=== PATIENT | female | born 1945 | race Caucasian/White ===

== ENCOUNTER 2017-01-07 22:25 | Observation (INO) ==
--- NOTE | 2017-01-07 23:14 | Emergency Department Note ---
Disposition Clinical Impression: Hypertensive emergency Chest pain Qualifiers: Chest pain type: unspecified Qualified Code(s): R07.9 - Chest pain, unspecified Disposition: Admitted As Inpatient Condition: Undetermined Time of Disposition: 01:09 General Adult HPI - General Chief complaint: ED Upper Respiratory Infection Stated complaint: sore throat Time Seen by Provider: 01/07/17 22:42 Source: patient Mode of arrival: ambulatory Limitations: no limitations Nursing Notes Reviewed: Yes Vital Signs Reviewed: Yes - History of Present Illness HPI Narrative: 71-year-old female with history of CAD and CABG arrives to [facility] emergency department with multiple complaints. The patient states she initially arrived to the emergency department complaining of left ear pain as well as sore throat. The patient states that she also feels as though her tongue is swollen. The patient states in the room upon questioning that she is complaining of left-sided chest pain with radiation into her left upper extremity. The patient states that this "kind of feels like my heart attack". The patient recently was visiting the emergency department for similar complaints. With a workup that revealed otitis externa, otitis media and vascular congestion on x-ray. The patient was discharged home on Augmentin by mouth as well as Ciprodex drops for the right otitis externa. The patient was instructed to follow-up with ENT as well as her PCP which she did not. The patient states that her pain started today, so she decided to come to the emergency department to get "checked out". The patient states that her chest discomfort and left upper extremity radiation of the pain also started this evening. The patient denies any other complaints at this time including fever, chills, abdominal pain, nausea, vomiting, diarrhea. The patient is difficult of hearing and unable to answer certain questions to include when she completed her antibiotics and if she took them to completion. She states while she was here in the emergency department that she took her antibiotics with her last dose yesterday. The patient was only prescribed 10 days worth of antibiotics so this does not make sense and she is unable to elaborate on when and how she finished her antibiotics. Onset (ago): day(s) (1) Location: mouth, chest Radiation: extremity (Left upper extremity) Pain Severity: moderate, similar to prior episodes Pain Scale: 8 Quality: aching Consistency: intermittent Improves with: nothing Worsens with: nothing Associated symptoms: Reports: denies other symptoms Treatments Prior to Arrival: none - Related Data Home Medications Medication Instructions Recorded Confirmed Metoprolol [Lopressor] 25 mg PO BID 01/08/17 01/08/17 Oxycodone HCl/Acetaminophen 1 tab PO Q6H PRN 01/08/17 01/08/17 [Percocet 10-325 mg Tablet] Previous Rx's Medication Instructions Recorded Omeprazole [PriLOSEC] 20 mg PO DAILY capsule 02/20/15 Gabapentin [Neurontin] 100 mg PO TID #15 capsule 02/29/16 Albuterol Sulfate [Albuterol 0 puff IH Q4HR #1 hfa.aer.ad 12/15/16 Inhaler] Allergies Allergy/AdvReac Type Severity Reaction Status Date / Time codeine Allergy Rash Verified 01/07/17 22:39 All systems ED: reviewed and negative except as stated. Constitutional: Denies: fever, chills, weakness, weight change Eyes: Denies: eye pain, eye discharge, vision change ENT ED: Reports: ear pain, throat pain. Denies: dental pain, hearing loss, epistaxis, congestion, dysphagia Cardiovascular: Reports: chest pain. Denies: palpitations, dyspnea on exertion , edema, syncope Respiratory: Denies: cough, dyspnea, wheezes, hemoptysis, stridor Gastrointestinal: Denies: abdominal pain, nausea, vomiting, diarrhea, constipation, hematemesis, melena, hematochezia Musculoskeletal: Denies: back pain, neck pain, arthralgia, myalgia Integumentary: Denies: rash, abrasion, lesions Neurological: Denies: headache, weakness, numbness, paresthesias, confusion, abnormal gait, vertigo Past Medical History - Past Medical History Attestation: Yes The following information was validated with the patient. Source: patient Medical history: Reports: coronary artery disease, diabetes, fibromyalgia, hypertension, myocardial infarction Surgical history: Reports: coronary bypass (CABG) Psychiatric history: Reports: no psych history [employer]OR [employer] history: Reports: no [employer] history - Social History Smoking Status: Never smoker Smokeless Tobacco Status: No Alcohol use: Reports: none Drug use: Reports: none Physical Exam - General Limitations: no limitations General appearance: alert, in no apparent distress - Head Head exam: atraumatic, normocephalic, normal inspection - Eye Eye exam: Present: normal appearance, PERRL, EOMI - ENT ENT exam: normal exam, normal oropharynx, mucous membranes moist, TM's normal bilaterally - Neck Neck exam: Present: normal inspection, full ROM, trachea midline - Chest Chest inspection: Present: normal inspection, symmetric chest wall rise - Respiratory Respiratory exam: Present: normal lung sounds bilaterally - Cardiovascular Cardiovascular exam: Present: regular rate, normal rhythm, normal heart sounds - Abdominal Exam Abdominal exam: Present: soft, Non-Tender. Absent: tenderness, distention, guarding, rebound, rigidity - Extremities Exam Extremities exam: Present: normal inspection, full ROM. Absent: tenderness, pedal edema - Neurological Exam Neurological exam: Present: alert, oriented X3 - Skin Skin exam: Present: warm, dry, intact, normal color Course - Reevaluation(s) Reevaluation #1: Patient was noted to have a blood pressure of 210 over 140s. The patient was administered 3 nitroglycerin sublingual for her chest pain as well as her blood pressure. Blood pressure dropped very quickly to the 160s systolic. The patient is resting comfortably in bed at this time without any chest pain. Waiting labs at this time. Chest x-ray demonstrates no acute findings. Given the patient's previous medical history and symptoms, we will attempt to admit the patient to the hospital. Time: 00:37 Reevaluation #2: Patient is currently chest pain-free at this time. We had an extensive discussion about admission versus discharge given her symptoms and nonspecific ST changes in the lateral leads. I expressed my concern for her chest pain and these changes as well as the fact that her blood pressure and chest pain have subsided after nitroglycerin. It was agreed that the patient would be admitted for observation and trending troponins for this complaint. She agrees to this plan and is willing to be admitted. Time: 00:42 Vital Signs Temperature 98.3 F 01/07/17 22:34 Pulse Rate 70 01/07/17 22:34 Respiratory Rate 20 01/07/17 22:34 Blood Pressure 210/101 01/07/17 22:34 O2 Sat by Pulse Oximetry 95 01/07/17 22:34 Temperature 98.1 F 01/08/17 14:49 Pulse Rate 68 01/08/17 14:49 Respiratory Rate 16 01/08/17 14:49 Blood Pressure 176/85 01/08/17 14:49 O2 Sat by Pulse Oximetry 93 01/08/17 14:49 Oxygen Delivery Oxygen Delivery Room Air Medical Decision Making - MDM Narrative Medical decision making narrative: Workup here in the emergency department demonstrates nonspecific ST changes on EKG from previous. The patient also was hypertensive and was experiencing what is likely hypertensive encephalopathy combined with this chest pain associated with the hypertension. After receiving 3 glycerin, the patient's systolic dropped into the 160s. The patient states she is feeling much better at this time and not complaining of any chest pain. Given the patient's history of CAD , we will admit the patient to the hospital for further workup and care. Patient agrees to this plan. We will speak to the hospitalist. Accepted by Dr. Denton. - Medical Records Medical records reviewed: Yes I reviewed the patient's medical records. - Lab Data Lab results reviewed: Yes I reviewed the patient's lab results. Result diagrams: 01/08/17 00:07 01/08/17 00:07 Lab Results 01/08/17 01/08/17 01/08/17 Range/Units 00:07 00:07 00:07 WBC 9.3 (4.3-11.1) K/mcL RBC 4.79 (3.82-4.97) M/mcL Hgb 13.7 (11.5-15.4) g/dL Hct 41.3 (35.3-44.9) % MCV 86.2 (83.0-100.0) fL MCH 28.6 (28.0-33.3) pg MCHC 33.2 (31.6-35.5) g/dL RDW 13.3 (11.5-14.5) % Plt Count 243 (140-400) K/mcL MPV 10.7 (9.4-12.4) fL Immature Gran % 0.3 (0-4) % Seg Neutrophils % 62.1 % Lymphocytes % 24.3 % Monocytes % 7.6 % Eosinophils % 4.9 % Basophils % 0.8 % Neutrophils # 5.8 (1.6-8.9) K/mcL Lymphocytes # 2.3 (0.6-4.6) K/mcL Monocytes # 0.7 (0.0-1.3) K/mcL Eosinophils # 0.5 (0.0-0.6) K/mcL Basophils # 0.1 (0.0-0.2) K/mcL Sodium 140 (136-145) mEq/L Potassium 4.0 (3.5-4.5) mEq/L Chloride 107 (98-109) mEq/L Carbon Dioxide 24 (19-29) mEq/L BUN 15 (7-20) mg/dL Creatinine 0.84 (0.57-1.11) mg/dL Est GFR ( Amer) > 60 (> 60) Est GFR (Non-Af Amer) > 60 (> 60) BUN/Creatinine Ratio 18 (6-26) Glucose 178 H (70-99) mg/dL Calculated Osmolality 295 (280-300) Calcium 9.5 (8.6-10.8) mg/dL Troponin I 0.00 (0-0.03) ng/mL - Radiology Data Radiology results reviewed: Yes I reviewed the patient's radiology results. Chest X-Ray 01/07/17 22:54 IMPRESSION: No focal airspace disease. Cardiomegaly D/ / Shmuel Bowden MD / Shmuel Bowden MD Interpreting Provider: Shmuel Bowden MD - EKG Data EKG #1 EKG attestation: Yes I reviewed and interpreted this EKG. EKG results narrative: Heart rate 65 bpm. VT interval 159 ms. QTc 420 ms. Normal axis. Normal sinus rhythm. No ST elevation or ST depression noted. Nonspecific changes noted in lateral leads primarily V4, V5, V6. This is different from EKG from . Attestation Statement - Attestation Attestation: I personally interviewed and examined this patient and my medical decision- making was reviewed with the ED Resident Physician, Dr. Eller I agree with the documented findings, disposition and treatment plan as described except to the extent set forth below. Patient is a 71-year-old white female with a history of known coronary disease and prior [place] who presents to the emergency department today and while in triage was complaining of a sore throat and some pain up into her neck and ear. Upon a more detailed history patient told us that she is having left anterolateral chest pain that radiates up into her axilla and left shoulder and arm, as well as her left neck towards her ear. Patient initially stated that this felt a lot like her prior chest pain related to her heart attack. Patient's blood pressure is significantly elevated on arrival despite taking her metoprolol as directed at home. Patient states that at home while she was experiencing this pain she did take 1 nitroglycerin prior to arrival to the ED. Patient denies any shortness of breath associated with this pain, no actual upper respiratory symptoms such as congestion postnasal drip. No cough. When asking more details about the throat it seemed to be more neck pain related to the chest pain than an actual painful swallowing issue. I agree with patient's physical exam findings as documented. Patient was placed on director of corporate strategy and continuous pulse ox IV saline was established and she was administered aspirin and nitroglycerin trial. Labs have been drawn and sent in portal chest x-ray is within normal limits. EKG did so show some subtle T-wave changes compared to prior EKG but no ST elevation or depression. Awaiting laboratory values. Following nitroglycerin administration patient with much improvement blood pressure at this time. Pain-free following nitroglycerin administration. Blood pressure much improved. Patient's troponin is negative. We will admit the patient for further evaluation of chest pain. Discussed with hospitalist who agrees to admit the patient for further evaluation and management.
[2017-01-07] MEDS ORDERED: Aspirin 325 MG TABLET PO ONE (23:31)
[2017-01-07] MEDS: Nitroglycerin 0.4 MG TAB.SUBL SL PRN (23:39)
[2017-01-08] MEDS: Nitroglycerin 0.4 MG TAB.SUBL SL PRN ×2 (00:02→00:09)
[2017-01-08 00:25] LABS: Basophils # 0.1 K/mcL (0.0-0.2); Basophils % 0.8 %; Eosinophils # 0.5 K/mcL (0.0-0.6); Eosinophils % 4.9 %; Hematocrit 41.3 % (35.3-44.9); Hemoglobin 13.7 g/dL (11.5-15.4); Immature Granulocytes % 0.3 % (0-4); Lymphocytes # 2.3 K/mcL (0.6-4.6); Lymphocytes % 24.3 %; Mean Corpuscular HGB Conc 33.2 g/dL (31.6-35.5); Mean Corpuscular Hemoglobin 28.6 pg (28.0-33.3); Mean Corpuscular Volume 86.2 fL (83.0-100.0); Mean Platelet Volume 10.7 fL (9.4-12.4); Monocytes # 0.7 K/mcL (0.0-1.3); Monocytes % 7.6 %; Neutrophils # 5.8 K/mcL (1.6-8.9); Platelet Count 243 K/mcL (140-400); Red Blood Count 4.79 M/mcL (3.82-4.97); Red Cell Distribution Width 13.3 % (11.5-14.5); Segmented Neutrophils % 62.1 %
[2017-01-08 00:40] LABS: BUN/Creatinine Ratio 18 (6-26); Blood Urea Nitrogen 15 mg/dL (7-20); Calcium 9.5 mg/dL (8.6-10.8); Carbon Dioxide 24 mEq/L (19-29); Chloride 107 mEq/L (98-109); Glucose 178 mg/dL (70-99); Osmolality,Calculated 295 (280-300); Sodium 140 mEq/L (136-145); eGFR For African Americans > 60 (> 60); eGFR For Non-African Americans > 60 (> 60)
[2017-01-08] MEDS ORDERED: Naloxone 0.4 MG/ML INJ IVP PRN (03:11)
[2017-01-08] MEDS ORDERED: *HR* Morphine 2 MG/ML SYRINGE IVP PRN (03:13)
[2017-01-08] MEDS ORDERED: *HR* Dextrose 50 % in Water (Syg) 50 ML SYRINGE IVP PRN (03:15)
[2017-01-08] MEDS ORDERED: D5% in Water 1,000 ML IVC PRN (03:15)
[2017-01-08] MEDS ORDERED: Dextrose Gel 15 GM PO PRN ×2 (03:15)
--- NOTE | 2017-01-08 03:30 | Internal Med History&Physical ---
Date of Encounter: 01/08/17 Time of Encounter: 03:10 Assessment and Plan (1) Chest pain Current visit: Yes Status: Acute CP could be related to hypertensive urgency versus ACS. Pt has multiple risk factors for CAD. Cardiac monitoring; trend troponins - if negative, needs stress test (after the BP is controlled). Qualifiers: Chest pain type: unspecified Qualified Code(s): R07.9 - Chest pain, unspecified (2) Accelerated hypertension Current visit: Yes Status: Acute Suspect it is possibly due to over the counter cough preperations. Pt reports compliance with medications and diet. Resume home medications and start hydralazine IV PRN. (3) CAD (coronary artery disease), [place] coronary artery Current visit: Yes Status: Chronic s/p CABG Qualifiers: [place] vs. transplanted heart: [place] heart Associated angina: angina presence unspecified Qualified Code(s): I25.10 - Atherosclerotic heart disease of [place] coronary artery without angina pectoris (4) Diabetes mellitus Current visit: Yes Status: Chronic Start sliding scale insulin Qualifiers: Diabetes mellitus type: type 2 Diabetes mellitus complication status: without complication Diabetes mellitus shelter insulin use: without shelter use Qualified Code(s): E11.9 - Type 2 diabetes mellitus without complications Internal Medicine - H&P: HPI Chief complaint: Chest pain Admitted From: Emergency Dept Plans for Post Hospital Care: Home History of present illness: Ms. Mcdaniels is a 71 year old female with history of diabetes, hypertension, CAD s/p CABG, Fibromyalgia. He presents to the emergency department with left ear pain as well as sore throat. She has been taking over the counter medications for sore throat. She reports intermittent sharp left-sided chest pain with radiation into her left upper extremity, since yesterday. Pain is unrelated to exertion / inspiration. Denies injury to the chest. She denies shortness of breath. Reports a dry cough. She denies fever or chills. She denies headache, blurry vision, abdominal pain, hematuria, dysuria, change in bowel habits. She was evaluated in the Emergency department no otitis media per ER evaluation. She was noted to be hypertensive with blood pressure of 201/ 91. She was given sublingual nitroglycerin, with improvement of blood pressure. Pt reports long h/o HTN and apparently her BP is generally evelated when she visits PCP. She reports compliance with medications and diet. She is admitted to the hospitalist service for further workup and management. Past Med Surg Social Fam HX - Past Medical History Medical history: coronary artery disease, diabetes, fibromyalgia, hypertension, myocardial infarction Psychiatric history: no psych history - Past Surgical History Surgical History: coronary bypass (CABG) - Social History Smoking Status: Never smoker Smokeless Tobacco Status: No Alcohol use: none Drug use: none - Family History Father Living Status: Hx Family Cardiac Disorders: Yes (anuerysm rupture) Internal Medicine - H&P: Meds Aspirin 325 mg PO QPM tablet 02/17/15 [Rx] Simvastatin [Zocor] 40 mg PO HS tablet 02/17/15 [Rx] Carvedilol [Coreg] 12.5 mg PO BID #60 tablet 02/20/15 [Rx] Omeprazole [PriLOSEC] 20 mg PO DAILY capsule 02/20/15 [Rx] Clopidogrel [Plavix] 75 mg PO DAILY 05/11/15 [History] Hydrocodone/Acetaminophen [[place] 5-325 Tablet] 1 tab PO Q6H PRN 05/11/15 [ History] Lisinopril [Zestril] 15 mg PO DAILY 05/11/15 [History] HYDROcodone/Acet 5/325 mg [[place] 5-325 mg] 1 tab PO Q6H PRN #8 tab 02/01/16 [Rx] Gabapentin [Neurontin] 100 mg PO TID #15 capsule 02/29/16 [Rx] Albuterol Sulfate [Albuterol Inhaler] 0 puff IH Q4HR #1 hfa.aer.ad 12/15/16 [Rx] Amoxicillin/Clavulanate [Augmentin] 875 mg PO BIDWM #20 tablet 12/15/16 [Rx] Allergies codeine Allergy (Verified 01/07/17 22:39) Rash All Systems PM: A 10-system review of systems was performed and is negative for pertinent findings except as documented above in the HPI. - Constitutional Vitals: Temp Pulse Resp BP Pulse Ox 97.6 F 54 18 228/94 95 01/08/17 01:49 01/08/17 01:49 01/08/17 01:49 01/08/17 01:49 01/08/17 01:49 Exam: General: Not in acute distress at the time of my evaluation HEENT: Oral mucosa is moist. No conjunctival palor or scleral icterus Neck: No obvious neck swellings Lungs: Clear to auscultation Cardiac: Regular rate and rhythm. No significant murmurs Abdomen: Soft, non tender. Bowel sounds present Genitourinary: No dominguez catheter Neurological: Alert and oriented. No gross localizing deficits Psych: Not aggressive or agitated Extremities: B/L leg edema Skin: No generalized rash Internal Med - H&P Results - Labs CBC & Chem 7: 01/08/17 00:07 01/08/17 00:07 - EKG Data -: EKG Interpreted by Myself EKG shows normal: sinus rhythm - EKG Data EKG comments: Non specific ST-T changes 01/08/17 03:31 - Impressions ITS Impressions Chest X-Ray 01/07/17 22:54 IMPRESSION: No focal airspace disease. Cardiomegaly D/ / Shmuel Bowden MD / Shmuel Bowden MD Interpreting Provider: Shmuel Bowden MD
[2017-01-08 04:51] LABS: Chol/HDL Ratio 5.4 (0-4.9)
[2017-01-08] MEDS ORDERED: Ipratropium/Albuterol Neb 3 ML IH PRN (06:42)
[2017-01-08] MEDS: Insulin LISPRO 300 UNITS/3 ML VIAL SQ SCH ×2 (08:05→12:15)
[2017-01-08] MEDS ORDERED: *HR* OxyCODONE/APAP 10/325 TABLET PO PRN ×2 (09:36→09:50)
[2017-01-08] MEDS ORDERED: Ondansetron 4 MG/2 ML VIAL IVP PRN (09:40)
[2017-01-08] MEDS ORDERED: *HR* Promethazine 25 MG/ML VIAL IVP PRN (09:40)
[2017-01-08] MEDS: Gabapentin 100 MG CAPSULE PO SCH ×2 (10:06→14:13)
[2017-01-08 14:53] VITALS: BP 176/85
--- NOTE | 2017-01-08 16:10 | Discharge Summary ---
Date of Encounter: 01/08/17 Time of Encounter: 14:30 - Discharge Diagnosis (1) Chest pain Priority: Primary Status: Resolved Comments: Patient with left-sided chest pain that was worsened when she laid on that left side and worsened with palpation and movement. Patient stating that she lifted a heavy block on the day prior to presentation. Consistent with musculoskeletal etiology. Troponins negative 3. Patient stating this chest pain did not feel like her prior MS chest pain. Low suspicion for acute coronary syndrome, regarding risk factor modification, recommend initiating aspirin and statin and daily blood pressure checks at home. (2) Costochondral chest pain Priority: Primary Status: Suspected (3) CAD (coronary artery disease), [place] coronary artery Priority: Secondary Status: Chronic Qualifiers: [place] vs. transplanted heart: [place] heart Associated angina: angina presence unspecified Qualified Code(s): I25.10 - Atherosclerotic heart disease of [place] coronary artery without angina pectoris (4) Hypertension Priority: Secondary Status: Chronic Comments: Patient stating her blood pressure as well as several family members blood pressures have been uncontrolled for many years. Blood pressure was improved at time of discharge, recommend daily blood pressure checks at home, keeping a log, and following up outpatient. (5) Hyperlipidemia Priority: Secondary Status: Chronic Comments: LDL elevated at 129, appropriate to initiate a statin. Qualifiers: Hyperlipidemia type: unspecified Qualified Code(s): E78.5 - Hyperlipidemia , unspecified (6) Diabetes mellitus Priority: Secondary Status: Chronic Comments: Appears relatively well controlled at home. No recent A1c, follow up outpatient. 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 Qualified Code(s): E11.9 - Type 2 diabetes mellitus without complications (7) DVT prophylaxis Priority: Primary Status: Acute Comments: Observation patient (8) History of heart bypass surgery Priority: Secondary Status: Chronic (9) Accelerated hypertension Priority: Primary Status: Resolved - Discharge Medications Prescriptions: Aspirin 81 mg PO DAILY #30 tab.chew Atorvastatin [Lipitor] 10 mg PO HS #30 tablet Blood Pressure Test Kit [Blood Pressure Kit] 1 each MC DAILY #1 kit Home Medications: Omeprazole [PriLOSEC] 20 mg PO DAILY capsule 02/20/15 [Rx] Gabapentin [Neurontin] 100 mg PO TID #15 capsule 02/29/16 [Rx] Albuterol Sulfate [Albuterol Inhaler] 0 puff IH Q4HR #1 hfa.aer.ad 12/15/16 [Rx] Aspirin 81 mg PO DAILY #30 tab.chew 01/08/17 [Rx] Atorvastatin [Lipitor] 10 mg PO HS #30 tablet 01/08/17 [Rx] Blood Pressure Test Kit [Blood Pressure Kit] 1 each MC DAILY #1 kit 01/08/17 [Rx ] Metoprolol [Lopressor] 25 mg PO BID 01/08/17 [History] Oxycodone HCl/Acetaminophen [Percocet 10-325 mg Tablet] 1 tab PO Q6H PRN [History] Allergies/Adverse Reactions: Allergies codeine Allergy (Verified 01/07/17 22:39) Rash Date of admission: 01/08/17 01:15 Primary care physician: Osmel Elliott MD Discharging clinician: Kassy Pro Anticipated date of discharge: 01/08/17 - Patient Status Disposition: Home, Self-Care Condition: Good Functional capacity at discharge: independent ambulation Overall status at discharge: patient is back to baseline - Discharge Instructions Follow Up With: Osmel Elliott MD [Primary Care Provider] - 01/13/17 10:15 am Additional Instructions: Follow-up with primary care provider as scheduled - Diet and Activity Activity: increase activity as tolerated Diet: diabetic diet, low fat, low cholesterol, low salt diet Hospital course: Ms. Mcdaniels is a 71 year old female with past medical history of CAD status post CABG, diabetes, fibromyalgia, hypertension, prior MS, hiatal hernia. Patient presented to the emergency department with initial chief complaint of left ear pain and a sore throat. Patient also endorses intermittent sharp, left -sided chest pain with radiation to her left upper extremity that started on the day prior to presentation. Pain is unrelated to exertion or inspiration. Patient denies shortness of breath. She denied headache, blurred vision, abdominal pain. Upon presentation, patient was hypertensive at 201/91 and she was given sublingual nitroglycerin with improvement in her blood pressure. Patient reporting a long history of hypertension and states her blood pressure is elevated whenever she visits her primary care provider. Workup otherwise negative in the emergency department. Chest x-ray negative. Patient was admitted to the hospitalist service for further evaluation and management. Given that she had nitroglycerin and uncontrolled blood pressure, stress test was not performed. Troponins were trended and were negative 3. On examination , patient's chest pain was worsened when she laid on her left side and worsened with palpation and movement. Patient stating that on the day prior to presentation, she was moving heavy blocks and states that she "overdid it." Workup with low suspicion for acute coronary syndrome, consistent with musculoskeletal etiology. Regarding her risk factor modification given that she has a history of CABG and prior MS, her diabetes appears relatively well controlled. It is unclear whether or not her blood pressure is controlled at home so she was given a prescription for a blood pressure cuff as she states she does not have one at home. She was also started on a baby aspirin and a statin. LDL elevated at 129. Blood pressure was better controlled prior to discharge, recommend daily blood pressure checks at home, keep a log, and follow -up with primary care provider. She was discharged home in stable condition with close outpatient follow-up recommended. ITS Impressions Chest X-Ray 01/07/17 22:54 IMPRESSION: No focal airspace disease. Cardiomegaly D/ / Shmuel Bowden MD / Shmuel Bowden MD Interpreting Provider: Shmuel Bowden MD - Time Spent with Patient Total time spent providing and/or coordinating discharge services: - Constitutional Vitals: Temp Pulse Resp BP Pulse Ox 98.1 F 68 16 176/85 93 01/08/17 14:49 01/08/17 14:49 01/08/17 14:49 01/08/17 14:49 01/08/17 14:49 General appearance: Present: A&O X 3, pleasant, no acute distress, answers questions appropriately - Head Head exam: Present: atraumatic, normocephalic - Eye Eye exam: Present: PERRL, conjuntiva pink, sclera anicteric Pupils: Present: PERRL - Neck Neck exam general surgery: Present: supple, trachea midline. Absent: lymphadenopathy - Respiratory Respiratory exam: Present: chest wall tenderness, CTAB. Absent: accessory muscle use, rales, respiratory distress, rhonchi, wheezes - Cardiovascular Cardiovascular exam: Present: RRR, +S1, +S2. Absent: diastolic murmur, gallop, rubs, systolic murmur - GI/Abdominal GI/Abdominal exam: Present: normal bowel sounds, soft, no peritoneal signs. Absent: distended, tenderness - Extremities Exam Extremities exam: Present: warm, radial pulses palpable and symetrical. Absent : calf tenderness, cyanotic, pedal edema - Neurological Exam Neurological exam: Present: alert, CN II-XII intact, normal gait, oriented X3, no focal deficits, strengths equal and symetr throughout. Absent: pronater drift, facial droop, speech deficit - Skin Skin exam: Present: dry, intact, normal color, warm - VTE Reasons for not Prescribing Prophylaxis: Treatment not Indicated - Low risk for VTE
[2017-01-08] MEDS ORDERED: Insulin LISPRO 300 UNITS/3 ML VIAL SQ SCH (21:00)
--- NOTE | 2017-01-09 11:17 | Electrocardiograph Report ---
[place] [id number] Test Date: 2017-01-07 Pat Name: Heath Mcdaniels Department: 102 Room: 3B Gender: F State Manager: : [id number] Requested By: August Eller Order Number: [id number] Reading MD: Mina Blair MD Measurements Intervals [place] Rate: 65 P: 2 TN: 159 QRS: 48 QRSD: 92 T: 50 QT: 408 QTc: 420 Interpretive Statements SINUS RHYTHM BASELINE ARTIFACT Electronically Signed On 01-09-2017 11:15:48 EDT by Mina Blair MD
== END 2017-01-08 16:31 | disposition home or self-care (01) ==
LOC: 3BNU 22:25 → EMEROO 22:25 → 3BNU 01-08 01:25
PROVIDERS: ADMIT Internal Medicine; ATTEND Nurse Practitioner Family

== ENCOUNTER 2020-07-03 21:54 | Observation (INO) ==
[2020-07-03] MEDS ORDERED: Aspirin 81 MG TAB.CHEW PO STA (22:20)
[2020-07-03] MEDS ORDERED: Nitroglycerin 0.4 MG TAB.SUBL SL PRN (22:20)
[2020-07-03 22:32] LABS: Basophils # 0.1 K/mcL (0.0-0.2); Basophils % 0.9 %; Eosinophils # 0.4 K/mcL (0.0-0.6); Eosinophils % 3.9 %; Hematocrit 42.4 % (35.3-44.9); Hemoglobin 13.7 g/dL (11.5-15.4); Immature Granulocytes % 0.2 % (0-4); Lymphocytes # 2.8 K/mcL (0.6-4.6); Lymphocytes % 31.4 %; Mean Corpuscular HGB Conc 32.3 g/dL (31.6-35.5); Mean Corpuscular Hemoglobin 28.2 pg (28.0-33.3); Mean Corpuscular Volume 87.4 fL (83.0-100.0); Mean Platelet Volume 10.4 fL (9.4-12.4); Monocytes # 0.7 K/mcL (0.0-1.3); Monocytes % 7.9 %; Platelet Count 296 K/mcL (140-400); Red Blood Count 4.85 M/mcL (3.82-4.97); Segmented Neutrophils % 55.7 %
[2020-07-03 22:41] LABS: Activated Partial Thrombo Time 28.9 Seconds (26.0-36.0)
[2020-07-03 22:48] LABS: BUN/Creatinine Ratio 20 (6-26); Blood Urea Nitrogen 19 mg/dL (8-23); Calcium 9.4 mg/dL (8.6-10.3); Carbon Dioxide 26 mEq/L (23-29); Chloride 102 mEq/L (98-107); Glucose 267 mg/dL (70-105); Osmolality,Calculated 298 (280-300); Potassium 3.6 mEq/L (3.5-5.1); Sodium 138 mEq/L (136-145); eGFR For African Americans > 60 (> 60); eGFR For Non-African Americans 59 (> 60)
[2020-07-03 22:50] LABS: Troponin I < 0.03 ng/mL (< 0.04)
[2020-07-04] MEDS ORDERED: Naloxone 0.4 MG/ML INJ IVP PRN (00:11)
[2020-07-04] MEDS ORDERED: ALPRAZolam 0.5 MG TABLET PO PRN (00:14)
[2020-07-04] MEDS ORDERED: *HR* Heparin 5,000 UNIT/ML VIAL SQ SCH (06:00)
[2020-07-04] MEDS ORDERED: Regadenoson 0.4 MG/5 ML SYRINGE IVP ONE (06:18)
[2020-07-04] MEDS ORDERED: FLUoxetine HCl 10 MG CAPSULE PO SCH (09:00)
[2020-07-04 10:24] VITALS: BP 170/73
== END 2020-07-04 13:15 | disposition home or self-care (01) ==
LOC: 3ANU 21:54 → EMEROOARM 21:54 → 3ANU 07-04 01:40
PROVIDERS: ADMIT Internal Medicine; ATTEND Internal Medicine

== ENCOUNTER 2020-07-20 03:42 | Observation (INO) ==
[2020-07-20 04:46] LABS: Basophils # 0.1 K/mcL (0.0-0.2); Basophils % 0.8 %; Eosinophils # 0.2 K/mcL (0.0-0.6); Eosinophils % 2.2 %; Hematocrit 39.4 % (35.3-44.9); Hemoglobin 12.7 g/dL (11.5-15.4); Immature Granulocytes % 0.3 % (0-4); Lymphocytes # 2.6 K/mcL (0.6-4.6); Lymphocytes % 24.7 %; Mean Corpuscular HGB Conc 32.2 g/dL (31.6-35.5); Mean Corpuscular Hemoglobin 27.8 pg (28.0-33.3); Mean Corpuscular Volume 86.2 fL (83.0-100.0); Mean Platelet Volume 10.4 fL (9.4-12.4); Monocytes % 9.2 %; Neutrophils # 6.6 K/mcL (1.6-8.9); Platelet Count 309 K/mcL (140-400); Red Blood Count 4.57 M/mcL (3.82-4.97); Red Cell Distribution Width 12.9 % (11.5-14.5); Segmented Neutrophils % 62.8 %; White Blood Count 10.5 K/mcL (4.3-11.1)
[2020-07-20 05:03] LABS: Alanine Aminotransferase 13 Units/L (7-52); Albumin 4.1 g/dL (3.5-5.7); Albumin/Globulin Ratio 1.5 (1.1-2.2); Alkaline Phosphatase 80 Units/L (34-104); Aspartate Amino Transferase 15 Units/L (13-39); BUN/Creatinine Ratio 18 (6-26); Bilirubin,Direct 0.1 mg/dL (0.0-0.2); Bilirubin,Indirect 0.4 mg/dL (0.0-1.0); Bilirubin,Total 0.5 mg/dL (0.3-1.0); Blood Urea Nitrogen 18 mg/dL (8-23); Calcium 9.1 mg/dL (8.6-10.3); Carbon Dioxide 30 mEq/L (23-29); Chloride 101 mEq/L (98-107); Ethanol < 10 mg/dL (Less than 10); Globulin 2.7 g/dL (2.4-3.5); Glucose 198 mg/dL (70-105); Osmolality,Calculated 293 (280-300); Potassium 3.3 mEq/L (3.5-5.1); Sodium 138 mEq/L (136-145); Total Protein 6.8 g/dL (6.4-8.9); eGFR For African Americans > 60 (> 60); eGFR For Non-African Americans 55 (> 60)
[2020-07-20 05:15] LABS: Thyroid Stimulating Hormone 1.913 mcIU/mL (0.340-5.600)
[2020-07-20 05:16] LABS: Bilirubin,Urine Negative (Negative); Blood,Urine Negative (Negative); Clarity,Urine Clear (Clear); Color,Urine Light-Yellow (Yellow); Glucose,Urine (UA) Normal (Normal); Ketones,Urine Negative (Negative); Leukocyte Esterase,Urine Negative (Negative); Nitrite,Urine Negative (Negative); PH,Urine 7.5 pH Units (5.0-8.0); Protein,Urine Negative (Neg-Trace); Specific Gravity,Urine 1.015 (1.010-1.025); Urobilinogen,Urine Normal (Normal)
[2020-07-20 05:24] LABS: Amphetamine Screen,Urine Negative ng/mL (Cutoff=1000); Barbiturate Screen,Urine Negative ng/mL (Cutoff=200); Benzodiazepines Screen,Urine Negative ng/mL (Cutoff=200); Cannabinoid Screen,Urine Negative ng/mL (Cutoff = 50); Cocaine Screen,Urine Negative ng/mL (Cutoff= 300); Opiate Screen,Urine Negative ng/mL (Cutoff=300); Phencyclidine Screen,Urine Negative ng/mL (Cutoff=25)
[2020-07-20] MEDS ORDERED: Ondansetron 4 MG/2 ML VIAL IVP PRN (07:31)
[2020-07-20] MEDS ORDERED: Naloxone 0.4 MG/ML INJ IVP PRN (07:31)
[2020-07-20] MEDS ORDERED: Potassium Chloride Elixir 20 MEQ/15 ML UDC PO ONE (07:33)
[2020-07-20 07:51] LABS: VBG HCO3 31 mEq/L (21-27); VBG PCO2 53 mmHg (41-51); VBG PH 7.38 pH Units (7.32-7.42); VBG PO2 58 mmHg (25-50)
[2020-07-20] MEDS ORDERED: Dextrose Gel 15 GM/37.5 ML TUBE PO PRN ×2 (08:50)
[2020-07-20] MEDS ORDERED: D5% in Water 1,000 ML IVC PRN (08:50)
[2020-07-20] MEDS ORDERED: *HR* Dextrose 50 % in Water (Vial) 50 ML VIAL IVP PRN (08:50)
[2020-07-20] MEDS: Insulin LISPRO 300 UNITS/3 ML VIAL SUBQ SCH ×2 (11:21→16:33)
[2020-07-20] MEDS: amLODIPine 5 MG TABLET PO SCH (15:28)
[2020-07-20] MEDS ORDERED: *HR* Heparin 5,000 UNIT/ML VIAL SQ SCH (18:00)
[2020-07-20] MEDS ORDERED: Nitroglycerin 0.4 MG TAB.SUBL SL PRN (18:12)
[2020-07-20] MEDS ORDERED: ALPRAZolam 1 MG TABLET PO PRN (18:12)
[2020-07-20] MEDS ORDERED: QUEtiapine Fumarate 25 MG TABLET PO SCH (21:00)
[2020-07-21 05:29] LABS: Basophils # 0.1 K/mcL (0.0-0.2); Basophils % 0.9 %; Eosinophils # 0.3 K/mcL (0.0-0.6); Eosinophils % 3.3 %; Hemoglobin 12.9 g/dL (11.5-15.4); Immature Granulocytes % 0.2 % (0-4); Lymphocytes % 31.2 %; Mean Corpuscular HGB Conc 32.3 g/dL (31.6-35.5); Mean Platelet Volume 10.1 fL (9.4-12.4); Monocytes # 0.8 K/mcL (0.0-1.3); Monocytes % 8.1 %; Neutrophils # 5.5 K/mcL (1.6-8.9); Platelet Count 276 K/mcL (140-400); Red Cell Distribution Width 13.2 % (11.5-14.5); Segmented Neutrophils % 56.3 %; White Blood Count 9.7 K/mcL (4.3-11.1)
[2020-07-21 05:48] LABS: BUN/Creatinine Ratio 22 (6-26); Blood Urea Nitrogen 17 mg/dL (8-23); Calcium 9.3 mg/dL (8.6-10.3); Carbon Dioxide 28 mEq/L (23-29); Chloride 106 mEq/L (98-107); Glucose 112 mg/dL (70-105); Magnesium 2.3 mg/dL (1.6-2.6); Osmolality,Calculated 292 (280-300); Potassium 3.8 mEq/L (3.5-5.1); Sodium 140 mEq/L (136-145); eGFR For African Americans > 60 (> 60); eGFR For Non-African Americans > 60 (> 60)
[2020-07-21 06:40] VITALS: BP 153/71
[2020-07-21] MEDS: amLODIPine 5 MG TABLET PO SCH (07:28)
[2020-07-21] MEDS: Insulin LISPRO 300 UNITS/3 ML VIAL SUBQ SCH ×2 (07:31→11:33)
[2020-07-21] MEDS ORDERED: Metoprolol XL (24 HR) Succ 50 MG TAB.ER.24H PO SCH (09:00)
== END 2020-07-21 12:55 | disposition home or self-care (01) ==
LOC: 2ANU 03:42 → EMEROOARM 03:42 → SUATTDRO 08:20 → 2ANU 09:35
PROVIDERS: ADMIT Internal Medicine; ATTEND Internal Medicine

== ENCOUNTER 2022-01-14 21:08 | Inpatient (IN) ==
[2022-01-14 21:52] LABS: Basophils # 0.1 K/mcL (0.0-0.2); Basophils % 0.7 %; Eosinophils # 0.3 K/mcL (0.0-0.6); Hematocrit 40.6 % (35.3-44.9); Hemoglobin 13.5 g/dL (11.5-15.4); Immature Granulocytes % 0.2 % (0-4); Lymphocytes # 2.2 K/mcL (0.6-4.6); Lymphocytes % 24.3 %; Mean Corpuscular HGB Conc 33.3 g/dL (31.6-35.5); Mean Corpuscular Hemoglobin 28.7 pg (28.0-33.3); Mean Corpuscular Volume 86.4 fL (83.0-100.0); Mean Platelet Volume 10.8 fL (9.4-12.4); Monocytes # 0.6 K/mcL (0.0-1.3); Monocytes % 6.5 %; Neutrophils # 5.9 K/mcL (1.6-8.9); Platelet Count 240 K/mcL (140-400); Red Cell Distribution Width 12.9 % (11.5-14.5); Segmented Neutrophils % 65.3 %; White Blood Count 9.1 K/mcL (4.3-11.1)
[2022-01-14 22:14] LABS: Calcium 9.2 mg/dL (8.6-10.3); Potassium 4.1 mEq/L (3.5-5.1); Troponin I 0.03 ng/mL (< 0.04)
[2022-01-14] MEDS ORDERED: Insulin LISPRO 300 UNITS/3 ML VIAL SUBQ ONE (22:36)
[2022-01-14] MEDS ORDERED: Aspirin 325 MG TABLET PO ONE (23:06)
[2022-01-14] MEDS ORDERED: Nitroglycerin 0.4 MG TAB.SUBL SL SCH (23:15)
[2022-01-14] MEDS ORDERED: *HR* Heparin 5,000 UNIT/ML VIAL IVP PRN ×2 (23:18)
[2022-01-14] MEDS ORDERED: *HR* Heparin 5,000 UNIT/ML VIAL IVP ONE (23:18)
[2022-01-14] MEDS ORDERED: Heparin 25,000UNIT/250ML 1/2NS 25,000 UNIT/250 ML IV.SOLN IVC SCH (23:30)
[2022-01-14] MEDS ORDERED: Nitroglycerin 0.4 MG TAB.SUBL SL PRN (23:47)
[2022-01-14] MEDS ORDERED: Naloxone 0.4 MG/ML INJ IVP PRN (23:47)
[2022-01-14 23:56] LABS: Heparin anti-factor XA UFH < 0.04 IU/mL (0.30-0.70); INR 1.1; Prothrombin Time 11.9 Seconds (9.4-12.1)
[2022-01-14 23:59] LABS: Activated Partial Thrombo Time 29.3 Seconds (26.0-36.0)
[2022-01-15] MEDS ORDERED: Dextrose Gel 15 GM/37.5 ML TUBE PO PRN ×2 (00:51)
[2022-01-15] MEDS ORDERED: *HR* Dextrose 50 % in Water (Syg) 50 ML SYRINGE IVP PRN (00:51)
[2022-01-15] MEDS ORDERED: D5% in Water 1,000 ML IVC PRN (00:51)
[2022-01-15] MEDS: Insulin LISPRO 300 UNITS/3 ML VIAL SUBQ SCH ×5 (01:12→23:59)
[2022-01-15] MEDS: GuaiFENesin Liq 200 MG/10 ML UDC PO PRN ×3 (01:35→23:00)
[2022-01-15 02:55] LABS: Hemoglobin 12.6 g/dL (11.5-15.4); Mean Corpuscular HGB Conc 33.2 g/dL (31.6-35.5); Mean Corpuscular Hemoglobin 28.5 pg (28.0-33.3); Mean Platelet Volume 10.9 fL (9.4-12.4); Platelet Count 233 K/mcL (140-400); Red Blood Count 4.42 M/mcL (3.82-4.97); Red Cell Distribution Width 12.9 % (11.5-14.5); White Blood Count 11.2 K/mcL (4.3-11.1)
[2022-01-15 03:11] LABS: Calcium 9.4 mg/dL (8.6-10.3); Potassium 3.8 mEq/L (3.5-5.1); Troponin I 0.24 ng/mL (< 0.04)
[2022-01-15] MEDS ORDERED: Perflutren Lipid Microsphere 1.3 ML in 0.9 % Sodium Chloride 8.7 ML IVP PRN (10:54)
[2022-01-15] MEDS: Aspirin Enteric Coated 81 MG Tablet PO SCH (12:01)
[2022-01-15] MEDS ORDERED: 0.9 % Sodium Chloride 1,000 ML ONE ×2 (12:30→15:28)
[2022-01-15] MEDS ORDERED: *HR* Heparin 10,000 UNIT/10 ML VIAL ONE ×3 (12:30→15:28)
[2022-01-15] MEDS ORDERED: Nitroglycerin 1,000 MCG/5 ML VIAL IV ONE ×3 (12:30→15:28)
[2022-01-15] MEDS ORDERED: Heparin 1,000 UNITS/500 mL 500 ML ONE ×3 (12:30→16:25)
[2022-01-15] MEDS ORDERED: Iopamidol - 370 200 ML INFUS..BTL ONE ×3 (12:30→16:32)
[2022-01-15] MEDS ORDERED: *HR* Midazolam HCl 2 MG/2 ML VIAL ONE ×2 (12:40→15:27)
[2022-01-15] MEDS ORDERED: *HR* FentaNYL (PF) 100 MCG/2 ML VIAL ONE ×2 (12:40→15:27)
[2022-01-15] MEDS ORDERED: *HR* Atropine Sulfate 1 MG/10 ML SYRINGE ONE (16:55)
[2022-01-15] MEDS ORDERED: *HR* Bivalirudin 250 MG VIAL IVC ONE (17:24)
[2022-01-15] MEDS: Ondansetron 4 MG/2 ML VIAL IVP PRN (18:11)
[2022-01-15] MEDS: Acetaminophen 325 MG TABLET PO PRN (23:00)
[2022-01-16 03:53] LABS: Basophils # 0.1 K/mcL (0.0-0.2); Basophils % 0.6 %; Eosinophils # 0.1 K/mcL (0.0-0.6); Eosinophils % 1.1 %; Hematocrit 38.6 % (35.3-44.9); Hemoglobin 12.6 g/dL (11.5-15.4); Immature Granulocytes % 0.3 % (0-4); Lymphocytes # 1.9 K/mcL (0.6-4.6); Lymphocytes % 19.5 %; Mean Corpuscular HGB Conc 32.6 g/dL (31.6-35.5); Mean Corpuscular Volume 85.8 fL (83.0-100.0); Mean Platelet Volume 10.8 fL (9.4-12.4); Monocytes # 0.6 K/mcL (0.0-1.3); Monocytes % 6.3 %; Platelet Count 261 K/mcL (140-400); Segmented Neutrophils % 72.2 %; White Blood Count 9.7 K/mcL (4.3-11.1)
[2022-01-16 04:09] LABS: Alanine Aminotransferase 12 Units/L (7-52); Albumin 3.8 g/dL (3.5-5.7); Albumin/Globulin Ratio 1.6 (1.1-2.2); Alkaline Phosphatase 81 Units/L (34-104); Aspartate Amino Transferase 20 Units/L (13-39); BUN/Creatinine Ratio 14 (6-26); Bilirubin,Total 0.9 mg/dL (0.3-1.0); Blood Urea Nitrogen 13 mg/dL (8-23); Carbon Dioxide 27 mEq/L (23-29); Chloride 103 mEq/L (98-107); Globulin 2.4 g/dL (2.4-3.5); Glucose 192 mg/dL (70-105); Osmolality,Calculated 289 (280-300); Potassium 3.8 mEq/L (3.5-5.1); Sodium 137 mEq/L (136-145); Total Protein 6.2 g/dL (6.4-8.9); eGFR For African Americans > 60 (> 60); eGFR For Non-African Americans > 60 (> 60)
[2022-01-16] MEDS: Acetaminophen 325 MG TABLET PO PRN ×2 (08:03→23:50)
[2022-01-16] MEDS: Aspirin Enteric Coated 81 MG Tablet PO SCH (08:03)
[2022-01-16] MEDS: Insulin LISPRO 300 UNITS/3 ML VIAL SUBQ SCH ×4 (08:09→21:20)
[2022-01-16] MEDS: lisinopriL 20 MG TABLET PO SCH (12:57)
[2022-01-16] MEDS: GuaiFENesin Liq 200 MG/10 ML UDC PO PRN ×2 (13:02→23:23)
[2022-01-16] MEDS ORDERED: *HR* FentaNYL (PF) 100 MCG/2 ML VIAL ONE (15:14)
[2022-01-16] MEDS ORDERED: Heparin 1,000 UNITS/500 mL 500 ML ONE (15:15)
[2022-01-16] MEDS ORDERED: 0.9 % Sodium Chloride 2,000 ML ONE (15:15)
[2022-01-16] MEDS ORDERED: *HR* Midazolam HCl 2 MG/2 ML VIAL ONE (15:15)
[2022-01-16] MEDS ORDERED: Iopamidol - 370 200 ML INFUS..BTL ONE (15:15)
[2022-01-16] MEDS ORDERED: *HR* Heparin 10,000 UNIT/10 ML VIAL ONE (15:15)
[2022-01-16] MEDS ORDERED: Nitroglycerin 1,000 MCG/5 ML VIAL IV ONE (15:15)
[2022-01-16] MEDS ORDERED: *HR* Atropine Sulfate 1 MG/10 ML SYRINGE ONE (16:26)
[2022-01-17 03:21] LABS: Basophils # 0.1 K/mcL (0.0-0.2); Basophils % 0.6 %; Eosinophils # 0.2 K/mcL (0.0-0.6); Eosinophils % 2.2 %; Hematocrit 39.3 % (35.3-44.9); Hemoglobin 12.7 g/dL (11.5-15.4); Immature Granulocytes % 0.2 % (0-4); Lymphocytes # 1.4 K/mcL (0.6-4.6); Lymphocytes % 14.2 %; Mean Corpuscular HGB Conc 32.3 g/dL (31.6-35.5); Mean Corpuscular Hemoglobin 28.4 pg (28.0-33.3); Mean Corpuscular Volume 87.9 fL (83.0-100.0); Mean Platelet Volume 10.8 fL (9.4-12.4); Monocytes # 0.7 K/mcL (0.0-1.3); Monocytes % 7.5 %; Neutrophils # 7.2 K/mcL (1.6-8.9); Platelet Count 255 K/mcL (140-400); Red Blood Count 4.47 M/mcL (3.82-4.97); Red Cell Distribution Width 13.2 % (11.5-14.5); Segmented Neutrophils % 75.3 %; White Blood Count 9.6 K/mcL (4.3-11.1)
[2022-01-17 03:44] LABS: Alanine Aminotransferase 13 Units/L (7-52); Albumin 3.8 g/dL (3.5-5.7); Albumin/Globulin Ratio 1.6 (1.1-2.2); Alkaline Phosphatase 79 Units/L (34-104); Aspartate Amino Transferase 21 Units/L (13-39); BUN/Creatinine Ratio 21 (6-26); Bilirubin,Total 0.7 mg/dL (0.3-1.0); Blood Urea Nitrogen 22 mg/dL (8-23); Calcium 9.1 mg/dL (8.6-10.3); Carbon Dioxide 25 mEq/L (23-29); Chloride 104 mEq/L (98-107); Globulin 2.4 g/dL (2.4-3.5); Glucose 206 mg/dL (70-105); Magnesium 1.8 mg/dL (1.6-2.6); Osmolality,Calculated 291 (280-300); Phosphorous 3.7 mg/dL (2.7-4.5); Potassium 3.9 mEq/L (3.5-5.1); Sodium 136 mEq/L (136-145); Total Protein 6.2 g/dL (6.4-8.9); Troponin I 1.01 ng/mL (< 0.04); eGFR For African Americans > 60 (> 60); eGFR For Non-African Americans 50 (> 60)
[2022-01-17] MEDS: Ondansetron 4 MG/2 ML VIAL IVP PRN (07:50)
[2022-01-17] MEDS: Insulin LISPRO 300 UNITS/3 ML VIAL SUBQ SCH ×4 (08:25→22:22)
[2022-01-17] MEDS ORDERED: *HR* Promethazine 25 MG/ML VIAL IM ONE (08:28)
[2022-01-17] MEDS ORDERED: Magnesium Sulfate 1 GM/102 ML PIGGYBACK IVPB ONE (08:40)
[2022-01-17] MEDS ORDERED: *HR* LORazepam 2 MG/ML VIAL IVP ONE (09:09)
[2022-01-17] MEDS: Aspirin Enteric Coated 81 MG Tablet PO SCH (12:10)
[2022-01-17] MEDS: amLODIPine 5 MG TABLET PO SCH (15:22)
[2022-01-17] MEDS: lisinopriL 20 MG TABLET PO SCH (16:29)
[2022-01-17] MEDS: *HR* Heparin 5,000 UNIT/ML VIAL SQ SCH (17:51)
[2022-01-18] MEDS: *HR* Heparin 5,000 UNIT/ML VIAL SQ SCH ×2 (05:47→17:16)
[2022-01-18 06:23] LABS: Basophils # 0.1 K/mcL (0.0-0.2); Basophils % 0.5 %; Eosinophils # 0.2 K/mcL (0.0-0.6); Eosinophils % 2.1 %; Hemoglobin 12.4 g/dL (11.5-15.4); Immature Granulocytes % 0.4 % (0-4); Lymphocytes # 1.9 K/mcL (0.6-4.6); Lymphocytes % 19.3 %; Mean Corpuscular HGB Conc 31.8 g/dL (31.6-35.5); Mean Corpuscular Hemoglobin 28.5 pg (28.0-33.3); Mean Corpuscular Volume 89.7 fL (83.0-100.0); Mean Platelet Volume 10.5 fL (9.4-12.4); Monocytes # 0.8 K/mcL (0.0-1.3); Monocytes % 7.6 %; Platelet Count 262 K/mcL (140-400); Red Blood Count 4.35 M/mcL (3.82-4.97); Red Cell Distribution Width 13.5 % (11.5-14.5); Segmented Neutrophils % 70.1 %
[2022-01-18 06:46] LABS: Albumin 3.7 g/dL (3.5-5.7); Albumin/Globulin Ratio 1.6 (1.1-2.2); Bilirubin,Total 0.7 mg/dL (0.3-1.0); Calcium 8.8 mg/dL (8.6-10.3); Globulin 2.3 g/dL (2.4-3.5); Potassium 4.1 mEq/L (3.5-5.1)
[2022-01-18 06:48] LABS: Phosphorous 3.5 mg/dL (2.7-4.5)
[2022-01-18] MEDS: Insulin LISPRO 300 UNITS/3 ML VIAL SUBQ SCH ×4 (09:35→21:02)
[2022-01-18] MEDS: amLODIPine 5 MG TABLET PO SCH (09:35)
[2022-01-18] MEDS: Aspirin Enteric Coated 81 MG Tablet PO SCH (09:35)
[2022-01-18] MEDS: lisinopriL 20 MG TABLET PO SCH (09:35)
[2022-01-18] MEDS ORDERED: Iopamidol - 370 500 ML MLS IVP ONE (15:17)
[2022-01-18] MEDS: Acetaminophen 325 MG TABLET PO PRN (18:03)
[2022-01-19] MEDS: GuaiFENesin Liq 200 MG/10 ML UDC PO PRN (01:26)
[2022-01-19 01:41] LABS: Basophils # 0.1 K/mcL (0.0-0.2); Basophils % 0.5 %; Eosinophils # 0.4 K/mcL (0.0-0.6); Hematocrit 38.5 % (35.3-44.9); Hemoglobin 12.4 g/dL (11.5-15.4); Immature Granulocytes % 0.5 % (0-4); Lymphocytes # 2.4 K/mcL (0.6-4.6); Lymphocytes % 23.7 %; Mean Corpuscular HGB Conc 32.2 g/dL (31.6-35.5); Mean Corpuscular Hemoglobin 28.5 pg (28.0-33.3); Mean Corpuscular Volume 88.5 fL (83.0-100.0); Mean Platelet Volume 10.3 fL (9.4-12.4); Monocytes # 0.9 K/mcL (0.0-1.3); Monocytes % 8.9 %; Neutrophils # 6.3 K/mcL (1.6-8.9); Platelet Count 238 K/mcL (140-400); Red Blood Count 4.35 M/mcL (3.82-4.97); Red Cell Distribution Width 13.4 % (11.5-14.5); Segmented Neutrophils % 62.4 %; White Blood Count 10.1 K/mcL (4.3-11.1)
[2022-01-19 02:06] LABS: Alanine Aminotransferase 18 Units/L (7-52); Albumin 3.8 g/dL (3.5-5.7); Albumin/Globulin Ratio 1.4 (1.1-2.2); Alkaline Phosphatase 80 Units/L (34-104); Aspartate Amino Transferase 24 Units/L (13-39); BUN/Creatinine Ratio 25 (6-26); Bilirubin,Total 0.6 mg/dL (0.3-1.0); Blood Urea Nitrogen 24 mg/dL (8-23); Calcium 9.1 mg/dL (8.6-10.3); Carbon Dioxide 26 mEq/L (23-29); Chloride 106 mEq/L (98-107); Globulin 2.7 g/dL (2.4-3.5); Glucose 145 mg/dL (70-105); Osmolality,Calculated 293 (280-300); Potassium 4.2 mEq/L (3.5-5.1); Sodium 138 mEq/L (136-145); Total Protein 6.5 g/dL (6.4-8.9); eGFR For African Americans > 60 (> 60); eGFR For Non-African Americans 56 (> 60)
[2022-01-19 05:03] VITALS: TEMP 97.5
[2022-01-19] MEDS: *HR* Heparin 5,000 UNIT/ML VIAL SQ SCH (06:20)
[2022-01-19 08:01] VITALS: BP 138/74; PULSE 80; O2SAT 97
[2022-01-19] MEDS: amLODIPine 5 MG TABLET PO SCH (08:41)
[2022-01-19] MEDS: lisinopriL 20 MG TABLET PO SCH (08:42)
[2022-01-19] MEDS: Aspirin Enteric Coated 81 MG Tablet PO SCH (08:42)
[2022-01-19] MEDS: Insulin LISPRO 300 UNITS/3 ML VIAL SUBQ SCH (08:42)
== END 2022-01-19 09:15 | disposition home or self-care (01) | DRG 281 ==
LOC: 3ANU 21:08 → EMEROOARM 21:08 → SUATTDRO 23:43 → 3ANU 01-15 00:16 → SUATTDRO 01-15 11:33 → 2NENU 01-15 17:21
PROVIDERS: ADMIT Internal Medicine; ATTEND Internal Medicine